=== PATIENT | female | born 1965 | race Caucasian/White ===

== ENCOUNTER → 2016-10-24 | Outpatient (CLI) | payer BC ==
[~2016-10-24] MED LIST: NECON1 TA1 PO
--- NOTE | ~2016-10-24 | MY11 ---
[facility] A Service of [facility] RADIOLOGY TEXT RESULTS PATIENT: PAPI QUEEN LOCATION: [facility] : 61 UNIT #: [id number] AGE: [address]: Kalyani Casiano MD SEX: F ORDER DR: [id number] [place] [id number] MR#: [id number] Acc #: [id number] NAME: PAPI QUEEN : 1965 SEX: F STUDY DATE/TIME: 10/24/2016 11:02 UNIT: [facility] ROOM: STUDY DESCRIPTION: MY Mammogram Screening Dig Gen Attending Physician: Kalyani Casiano M.D. Referring Physician: Kalyani Casiano M.D. Ordering Physician: Kalyani Casiano M.D. Primary Care Physician: Kalyani Casiano M.D. MEDICAL IMAGING REPORT This report is preliminary unless electronic signature is present. EXAM Digital screening mammogram. DATE OF EXAM 10/24/2016 LOCATION [facility]. HISTORY 51-year-old woman, no risk elevation. Annual screen. COMPARISON Mammograms date to 06/21/2005, with most recent screening comparison, 07/02/2015. FINDINGS Digital imaging of each breast was completed utilizing a two-view examination of each breast in craniocaudal and mediolateral-oblique projections. Review and interpretation of digital mammograms include a second review in conjunction with FDA-approved CAD device. There is a normal parenchymal presentation bilaterally consistent with the patient's age. There are no breast masses imaged and no parenchymal asymmetry is visualized. There are no suspicious microcalcifications and I see no focal architectural disturbance. IMPRESSION Negative screening digital mammogram. One-year followup recommended. Patients over the age of 40 are entered into a reminder system with target due date for the next mammogram. A result letter will also be sent to the patient. [facility] A Service [facility] RADIOLOGY TEXT RESULTS PATIENT: PAPI QUEEN LOCATION: [facility] : 61 UNIT #: [id number] AGE: [address]: Kalyani Casiano MD SEX: F ORDER DR: JERRI: 1 Negative. Dictated by... Albaro Pandya M.D. THIS IS AN ELECTRONICALLY VERIFIED REPORT Albaro Pandya M.D. at 10/24/2016 3:57 PM FREDI/ernesto TD: 10/24/2016 15:31 JOB #: [id number] MEDICAL IMAGING REPORT
== END | disposition home or self-care (01) ==
LOC: SMAM 10:32
DX: Z12.31 Encounter for screening mammogram for malignant neoplasm of breast (principal)
CPT/HCPCS: G0202